=== PATIENT | female | born 1990 | race Caucasian/White ===

== ENCOUNTER 2020-04-08 11:39 | Outpatient (CLI) | payer BC, MEDICAID ==
[~2020-04-08] VITALS: Ht 160 cm; Wt 55.0 kg
[2020-04-08 11:49] VITALS: BP 100/59
[2020-04-08] MEDS ORDERED: PREN1TAB62 PO (11:59)
[2020-04-08 12:11] LABS: MICROSCOPIC INDICATED
== END 2020-04-08 13:09 | disposition home or self-care (01) ==
LOC: LDOP 11:39
PROVIDERS: ATTEND Obstetrics & Gynecology
DX: O26.892 Other specified pregnancy related conditions, second trimester (principal); R25.2 Cramp and spasm; Z3A.23 23 weeks gestation of pregnancy
CPT/HCPCS: 81001; 87086; 99201; G0463

== ENCOUNTER 2020-08-01 12:28 | Inpatient (IN) | payer BC ==
[~2020-08-01] VITALS: Ht 160 cm; Wt 65.9 kg
[~2020-08-01 12:28] MED LIST: PREN1TAB62 PO
[2020-08-06] MEDS: LACTATED RINGERS 1,000 ML IV SCH (08:00)
[2020-08-06] MEDS ORDERED: D5%-LACTATED RINGERS 1,000 ML IV SCH (21:00)
[2020-08-06] MEDS ORDERED: TERBUTALINE 1 MG/ML, 1ML IVPush PRN (21:00)
[2020-08-06] MEDS ORDERED: OXYTOCIN 30U/ 0.9% NaCL 500ML 500 ML IV ONE (21:00)
[2020-08-06] MEDS ORDERED: FENTANYL PF 100 MCG/2ML IV PRN (21:00)
[2020-08-06] MEDS ORDERED: SODIUM CITRATE/CITRIC ACID 30 ML UDC PO PRN (21:00)
[2020-08-06] MEDS ORDERED: ALUMINUM/MAG/SIMETHICONE 30 ML UDC PO PRN (21:00)
[2020-08-06] MEDS ORDERED: METOCLOPRAMIDE 5 MG/ML, 2ML IVPush PRN (21:00)
[2020-08-06] MEDS ORDERED: ONDANSETRON 2MG/ML, 2ML IVPush PRN (21:00)
[2020-08-06] MEDS ORDERED: OXYTOCIN 30U/ 0.9% NaCL 500ML 500 ML IV PRN (21:00)
[2020-08-06] MEDS ORDERED: TERBUTALINE 1 MG/ML, 1ML SQ PRN (21:00)
[2020-08-06] MEDS ORDERED: MISOPROSTOL 25 MCG TABLET VG PRN (21:00)
[2020-08-06] MEDS ORDERED: LIDOCAINE 1%, 20ML ONE (21:18)
[2020-08-06] MEDS ORDERED: MISOPROSTOL 25 MCG TABLET ONE (21:18)
[2020-08-06] MEDS ORDERED: NEWBORN KIT ONE (21:18)
[2020-08-06] MEDS ORDERED: OXYTOCIN 30U/ 0.9% NaCL 500ML 500 ML ONE (21:19)
[2020-08-06] MEDS ORDERED: MISOPROSTOL 200 MCG TABLET ONE (21:19)
[2020-08-06 21:29] LABS: BASOPHILS % (AUTO) 0 % (0-1); EOSINOPHILS % (AUTO) 2 % (1-7); LYMPHOCYTES % (AUTO) 19 % (22-44); MD NO; MEAN CORPUSCULAR HEMOGLOBIN 33.7 pg (27.0-34.8); MEAN CORPUSCULAR HGB CONC 34.3 g/dL (32.4-35.8); MEAN PLATELET VOLUME 8.9 fL (7.4-10.4); MONOCYTES % (AUTO) 7 % (2-9); NEUTROPHILS % (AUTO) 72 % (42-75); PLATELET COUNT 216 x10^3/uL (130-400); RED BLOOD COUNT 2.78 x10^6/uL (3.82-5.3)
[2020-08-06 21:34] VITALS: BP 120/72
[2020-08-07] MEDS ORDERED: FENTANYL PF 100 MCG/2ML ONE ×2 (08:18→09:16)
[2020-08-07] MEDS: FENTANYL PF 100 MCG/2ML IVPush PRN ×2 (08:28→09:26)
[2020-08-07] MEDS ORDERED: BUPIVACAINE 0.25% ONE ×2 (09:14→15:04)
[2020-08-07] MEDS ORDERED: FENTANYL/BUPIV./NS/PF 250 ML EPIDCONT ONE (09:14)
[2020-08-07] MEDS: LACTATED RINGERS 1,000 ML IV SCH (09:45)
[2020-08-07] MEDS ORDERED: LACTATED RINGERS 1,000 ML IVBOLUS PRN (10:30)
[2020-08-07] MEDS ORDERED: LACTATED RINGERS 1,000 ML IV SCH (10:30)
[2020-08-07] MEDS ORDERED: FENTANYL/BUPIV./NS/PF 250 ML EPIDCONT SCH (10:30)
[2020-08-07] MEDS ORDERED: EPHEDRINE 50 MG/ML, 1ML IVPush PRN (10:30)
[2020-08-07] MEDS ORDERED: ACETAMINOPHEN 500 MG TABLET ONE ×2 (14:29→18:13)
[2020-08-07] MEDS ORDERED: CLINDAMYCIN PMX 900MG/50ML 50 ML ONE (14:30)
[2020-08-07] MEDS ORDERED: ACETAMINOPHEN 500 MG TABLET PO ONE ×2 (14:30→18:00)
[2020-08-07] MEDS ORDERED: GENTAMICIN PER PHARMACY MC PRN (14:30)
[2020-08-07] MEDS: CLINDAMYCIN PMX 900MG/50ML 50 ML IV SCH ×2 (14:34→22:49)
[2020-08-07] MEDS: GENTAMICIN 120 MG in SODIUM CHLORIDE 0.9% 50 ML IV SCH ×2 (15:11→23:29)
[2020-08-07] MEDS ORDERED: PHARMACOKINETIC MONITORING MC PRN ×2 (15:30→17:00)
[2020-08-07] MEDS ORDERED: VANCOMYCIN PER PHARMACY MC PRN (16:30)
[2020-08-07] MEDS: VANCOMYCIN 1,300 MG in SODIUM CHLORIDE 0.9% 250 ML IV SCH (17:07)
[2020-08-07] MEDS ORDERED: OXYTOCIN 30U/ 0.9% NaCL 500ML 500 ML IV SCH (20:00)
[2020-08-07] MEDS ORDERED: ONDANSETRON 2MG/ML, 2ML IV PRN (20:00)
[2020-08-07] MEDS: OXYTOCIN 30U/ 0.9% NaCL 500ML 500 ML IV SCH ×3 (20:00→22:52)
[2020-08-07] MEDS ORDERED: MISOPROSTOL 200 MCG TABLET PR PRN (20:00)
[2020-08-07] MEDS ORDERED: OXYcodone IR 5MG TABLET PO PRN ×2 (20:00)
[2020-08-07] MEDS ORDERED: SIMETHICONE 80 MG CHEW TAB PO PRN (20:00)
[2020-08-07] MEDS ORDERED: ACETAMINOPHEN 325 MG TABLET PO PRN (20:00)
[2020-08-07] MEDS ORDERED: OXYTOCIN 30U/ 0.9% NaCL 500ML 500 ML ONE (20:04)
[2020-08-07] MEDS ORDERED: ACETAMINOPHEN 325 MG TABLET ONE (21:06)
[2020-08-07] MEDS ORDERED: IBUPROFEN 600 MG TABLET ONE (21:07)
[2020-08-07] MEDS: IBUPROFEN 600 MG TABLET PO PRN (21:09)
[2020-08-07 21:45] VITALS: BP 117/75
[2020-08-08] MEDS: OXYTOCIN 30U/ 0.9% NaCL 500ML 500 ML IV SCH ×2 (00:18→01:44)
[2020-08-08 01:45] VITALS: BP 100/64
[2020-08-08 03:07] LABS: BASOPHILS % (AUTO) 0 % (0-1); EOSINOPHILS % (AUTO) 0 % (1-7); LYMPHOCYTES % (AUTO) 6 % (22-44); MEAN CORPUSCULAR HEMOGLOBIN 33.5 pg (27.0-34.8); MEAN CORPUSCULAR HGB CONC 33.9 g/dL (32.4-35.8); MEAN PLATELET VOLUME 8.6 fL (7.4-10.4); MONOCYTES % (AUTO) 7 % (2-9); NEUTROPHILS % (AUTO) 87 % (42-75); PLATELET COUNT 196 x10^3/uL (130-400); RED BLOOD COUNT 2.53 x10^6/uL (3.82-5.3); RED CELL DISTRIBUTION WIDTH 15.3 % (9.6-15.2)
[2020-08-08 03:08] LABS: MD SCAN
[2020-08-08 03:15] LABS: CREATININE 1.37 mg/dL (0.55-1.02)
[2020-08-08] MEDS: VANCOMYCIN 1,300 MG in SODIUM CHLORIDE 0.9% 250 ML IV SCH ×2 (04:54→17:50)
[2020-08-08 05:00] VITALS: BP 103/68
[2020-08-08] MEDS: CLINDAMYCIN PMX 900MG/50ML 50 ML IV SCH (07:07)
[2020-08-08 07:30] VITALS: BP 100/66
[2020-08-08] MEDS: GENTAMICIN 120 MG in SODIUM CHLORIDE 0.9% 50 ML IV SCH (07:53)
[2020-08-08] MEDS: DOCUSATE 100 MG CAPSULE PO PRN (07:53)
[2020-08-08] MEDS: IBUPROFEN 600 MG TABLET PO PRN ×2 (07:53→15:27)
[2020-08-08] MEDS: PRENATAL VIT/IRON/FA 1 EACH TABLET PO SCH (07:53)
[2020-08-08 13:00] VITALS: BP 98/62
[2020-08-08] MEDS ORDERED: CLINDAMYCIN PMX 900MG/50ML 50 ML IV SCH (14:30)
[2020-08-08] MEDS ORDERED: GENTAMICIN 120 MG in SODIUM CHLORIDE 0.9% 50 ML IV SCH ×2 (15:00→20:00)
[2020-08-08 17:00] VITALS: BP 99/65
[2020-08-08] MEDS: FERROUS SULFATE 325 MG TABLET PO SCH (17:49)
[2020-08-08 20:00] VITALS: BP 94/57
[2020-08-09 07:55] VITALS: BP 99/64
[2020-08-09] MEDS ORDERED: DOCU-131 PO (11:07)
[2020-08-09] MEDS ORDERED: IBUP-1222 PO (11:07)
[2020-08-09] MEDS: PRENATAL VIT/IRON/FA 1 EACH TABLET PO SCH (11:20)
[2020-08-09] MEDS: IBUPROFEN 600 MG TABLET PO PRN (11:20)
[2020-08-09] MEDS: FERROUS SULFATE 325 MG TABLET PO SCH (11:21)
[2020-08-09] MEDS: DOCUSATE 100 MG CAPSULE PO PRN (11:21)
== END 2020-08-09 13:40 | disposition home or self-care (01) | DRG 806 ==
LOC: LDIP 08-06 20:16 → 2NW 08-07 21:40
PROVIDERS: ADMIT Obstetrics & Gynecology; ATTEND Obstetrics & Gynecology
PROC: 10E0XZZ Delivery of Products of Conception, External Approach (ICD-10-PCS; principal; 2020-08-07)
PROC: 10H07YZ Insertion of Other Device into Products of Conception, Via Natural or Artificial Opening (ICD-10-PCS; 2020-08-07)
PROC: 3E0P7VZ Introduction of Hormone into Female Reproductive, Via Natural or Artificial Opening (ICD-10-PCS; 2020-08-07)
PROC: 3E033VJ Introduction of Other Hormone into Peripheral Vein, Percutaneous Approach (ICD-10-PCS; 2020-08-07)
PROC: 3E0D7GC Introduction of Other Therapeutic Substance into Mouth and Pharynx, Via Natural or Artificial Opening (ICD-10-PCS; 2020-08-07)
PROC: 0W8NXZZ Division of Female Perineum, External Approach (ICD-10-PCS; 2020-08-07)
PROC: 0UQGXZZ Repair Vagina, External Approach (ICD-10-PCS; 2020-08-07)
PROC: 3E0R3BZ Introduction of Anesthetic Agent into Spinal Canal, Percutaneous Approach (ICD-10-PCS; 2020-08-07)
PROC: 00HU33Z Insertion of Infusion Device into Spinal Canal, Percutaneous Approach (ICD-10-PCS; 2020-08-07)
DX: O69.81X0 Labor and delivery complicated by cord around neck, without compression, not applicable or unspecified (principal); O99.354 Diseases of the nervous system complicating childbirth; Z37.0 Single live birth; O75.2 Pyrexia during labor, not elsewhere classified; O71.4 Obstetric high vaginal laceration alone; J45.909 Unspecified asthma, uncomplicated; O99.52 Diseases of the respiratory system complicating childbirth; Z3A.40 40 weeks gestation of pregnancy; Z20.822 Contact with and (suspected) exposure to COVID-19; O76 Abnormality in fetal heart rate and rhythm complicating labor and delivery; D64.9 Anemia, unspecified; O99.02 Anemia complicating childbirth; G43.909 Migraine, unspecified, not intractable, without status migrainosus; Z80.1 Family history of malignant neoplasm of trachea, bronchus and lung; Z82.3 Family history of stroke; Z88.0 Allergy status to penicillin; Z88.1 Allergy status to other antibiotic agents
CPT/HCPCS: 36415; 82565; 84520; 85025; 86592; 86850; 86900; 87635; G0378; J3010; J3370; J1580; J2590; J7050; J7120

== ENCOUNTER 2020-09-16 15:54 | Inpatient (IN) | payer BC ==
[~2020-09-16] VITALS: Ht 160 cm; Wt 52.0 kg
[~2020-09-16 15:54] MED LIST changes: +DOCU-131 PO; +IBUP-1222 PO
--- NOTE | 2020-09-16 17:05 | NUR ---
preceptor RN: pt here c/o increased vaginal bleeding today with multiple clots pt reports that she is 6 weeks post-, , vaginal delivery. pt reports that she had pre- care prior to delivery and that during delivery she had some internal tearing requiring sutures and then had an episiotomy that is well healing. pt states that her F/U with her OBGYN is scheduled for next week and that when she called her office they told her to come here for eval pt has no urinary c/o. reports that she is having normal BM and that she is currently taking stool softeners pt states that she is having very minimal cramping. no back pain pt is at bedside
--- NOTE | 2020-09-16 17:20 | NUR ---
preceptor RN: Dr. Richardson has been to bedside for eval pt placed on chucks for comfort pt updated on POC
[2020-09-16 17:59] LABS: BASOPHILS % (AUTO) 1 % (0-1); EOSINOPHILS % (AUTO) 7 % (1-7); LYMPHOCYTES % (AUTO) 29 % (22-44); MEAN CORPUSCULAR HEMOGLOBIN 33.2 pg (27.0-34.8); MEAN CORPUSCULAR HGB CONC 33.7 g/dL (32.4-35.8); MEAN PLATELET VOLUME 7.7 fL (7.4-10.4); MONOCYTES % (AUTO) 5 % (2-9); NEUTROPHILS % (AUTO) 58 % (42-75); PLATELET COUNT 312 x10^3/uL (130-400); RED BLOOD COUNT 3.26 x10^6/uL (3.82-5.3); RED CELL DISTRIBUTION WIDTH 14.4 % (9.6-15.2)
[2020-09-16 18:01] LABS: MD NO
[2020-09-16 18:04] LABS: ALBUMIN 3.4 g/dL (3.4-5.0); ANION GAP 6 mmol/L (5-15); CALCIUM 8.3 mg/dL (8.5-10.1); CHLORIDE 106 mmol/L (98-107); CREATININE 0.62 mg/dL (0.55-1.02)
--- NOTE | 2020-09-16 18:30 | NUR ---
preceptor RN: US at bedside to start exam, pt states that she is having increased bleeding. A&O x4. pink warm and dry
--- NOTE | 2020-09-16 19:04 | NUR ---
Pt ambulated to restroom w steady gait. Pt felt light headed while in restroom, taken back to room via wheelchair for saftey and comfort. Continous pulse ox, BP, and cardiac monitors reapplied. VSS. NSR on monitor. Pt reports light headed feeling has resolved.
--- NOTE | 2020-09-16 19:15 | NUR ---
preceptor RN: bedside US has been completed. Dr. Richardson notified report to Eulalio RAMOS
--- NOTE | 2020-09-16 19:17 | NUR ---
REPORT RECIEVED FROM BARBIE RAMOS, ASSUMED CARE
[2020-09-16] MEDS ORDERED: ADENOSINE 6 MG/2 ML ONE (20:08)
--- NOTE | 2020-09-16 20:12 | NUR ---
PT BEDSIDE FOR RECHECK. PT WAS IN SVT. PT SELF CONVERTED WITH VAGEL MANUEVERS. PT STILL TACHY. IV ESTABLISHED. FLUIDS INFUSING.
[2020-09-16] MEDS ORDERED: SODIUM CHLORIDE 0.9% 1,000ML IVBOLUS ONE ×2 (20:30→22:30)
--- NOTE | 2020-09-16 20:33 | NUR ---
PT STATES " I FEEL BETTER"
--- NOTE | 2020-09-16 21:31 | NUR ---
PT BLEEDING - MD NOTIFED OF BEDDING SOAKED IN BLOOD. FEMALE RN TO ASSIST PT IN CLEANING AND MOVE TO [employer] HELPER BED
[2020-09-16 21:34] LABS: FREE T4 (FREE THYROXINE) 0.69 ng/dL (0.76-1.46)
--- NOTE | 2020-09-16 21:40 | NUR ---
Assist RN: Cleaned patient up with soap and water; provided scar care. Transferred patient to [facility]. Upon movement, patient experienced a syncopal episode. Patient lost consciousness for approx 30 seconds. Patient remains hypotensive; receiving fluids; ERP aware.
--- NOTE | 2020-09-16 22:00 | NUR ---
Assist RN: Chaperoned pelvic exam with ERP. Assisted patient to clean up afterward. Primary RN at bedside. Fluids infusing.
--- NOTE | 2020-09-16 22:07 | NUR ---
RECEIVED BS REPORT FROM RICHARD COOL TO ASSUME CARE OF PT. AT THIS TIME. LAB AT BS FOR REPEAT BLOOD DRAW.
--- NOTE | 2020-09-16 22:58 | NUR ---
DR. TIPTON IN TO DISCUSS POC WITH PT. RAISA SENT TO BLOOD BANK.
[2020-09-16] MEDS ORDERED: METHYLERGONOVINE 0.2 MG/ML IM ONE (23:00)
[2020-09-16 23:03] VITALS: BP 84/43
[2020-09-16 23:10] VITALS: BP 98/44
[2020-09-16] MEDS ORDERED: ONDANSETRON 2MG/ML, 2ML ONE (23:10)
[2020-09-16 23:25] VITALS: BP 90/53
--- NOTE | 2020-09-16 23:26 | NUR ---
BLOOD WAS INITIATED AND PT. REMAINS FREE FROM S/S OF REACTION.
--- NOTE | 2020-09-16 23:35 | NUR ---
FIRST ATTEMPT TO CALL REPORT TO FLOOR.
[2020-09-16 23:40] VITALS: BP 88/50
--- NOTE | 2020-09-16 23:40 | NUR ---
REPORT TO RICHARD FINK. FLOOR READY FOR PT. TRANSPORT. ENDORSED TO FLOOR RN NEED FOR 2ND UNIT OF BLOOD WHEN 1ST ONE IS COMPLETED.
[2020-09-17] VITALS (19 sets, daily range): BP systolic 76–104; BP diastolic 46–68
[2020-09-17] MEDS ORDERED: ACETAMINOPHEN 325 MG TABLET PO PRN
[2020-09-17] MEDS ORDERED: POLYETHYLENE GLYCOL 17 GM PACKET PO PRN
[2020-09-17] MEDS ORDERED: BISACODYL 10 MG SUPP PR PRN
[2020-09-17] MEDS ORDERED: ONDANSETRON ODT 4 MG PO PRN
[2020-09-17 00:04] LABS: INTERNATIONAL NORMALIZED RATIO 1.21 (0.93-1.1); PROTHROMBIN TIME 12.9 Seconds (9.6-11.5)
[2020-09-17 04:40] LABS: BASOPHILS % (AUTO) 0 % (0-1); EOSINOPHILS % (AUTO) 0 % (1-7); LYMPHOCYTES % (AUTO) 11 % (22-44); MEAN CORPUSCULAR HEMOGLOBIN 30.6 pg (27.0-34.8); MEAN CORPUSCULAR HGB CONC 33.7 g/dL (32.4-35.8); MEAN PLATELET VOLUME 7.7 fL (7.4-10.4); MONOCYTES % (AUTO) 2 % (2-9); NEUTROPHILS % (AUTO) 87 % (42-75); PLATELET COUNT 200 x10^3/uL (130-400); RED BLOOD COUNT 3.34 x10^6/uL (3.82-5.3); RED CELL DISTRIBUTION WIDTH 19.3 % (9.6-15.2)
[2020-09-17 04:41] LABS: MD NO
[2020-09-17 04:55] LABS: ANION GAP 7 mmol/L (5-15); CALCIUM 7.2 mg/dL (8.5-10.1); CHLORIDE 114 mmol/L (98-107); CREATININE 0.53 mg/dL (0.55-1.02)
[2020-09-17] MEDS: SENNA/DOCUSATE TABLET PO SCH (08:50)
[2020-09-17] MEDS ORDERED: GADOTERATE 5 MMOL/10 ML VIAL ONE (12:39)
[2020-09-18 01:47] VITALS: BP 92/50
[2020-09-18 05:47] LABS: BASOPHILS % (AUTO) 0 % (0-1); EOSINOPHILS % (AUTO) 11 % (1-7); LYMPHOCYTES % (AUTO) 32 % (22-44); MEAN CORPUSCULAR HEMOGLOBIN 30.8 pg (27.0-34.8); MEAN CORPUSCULAR HGB CONC 33.9 g/dL (32.4-35.8); MEAN PLATELET VOLUME 7.6 fL (7.4-10.4); MONOCYTES % (AUTO) 7 % (2-9); NEUTROPHILS % (AUTO) 50 % (42-75); PLATELET COUNT 166 x10^3/uL (130-400); RED BLOOD COUNT 3.29 x10^6/uL (3.82-5.3); RED CELL DISTRIBUTION WIDTH 18.8 % (9.6-15.2)
[2020-09-18 05:48] LABS: MD NO
[2020-09-18 05:55] LABS: ALBUMIN 2.7 g/dL (3.4-5.0); ANION GAP 6 mmol/L (5-15); CALCIUM 7.6 mg/dL (8.5-10.1); CHLORIDE 115 mmol/L (98-107)
[2020-09-18 05:59] LABS: ALANINE AMINOTRANSFERASE 15 U/L (12-78); ALKALINE PHOSPHATASE 48 U/L (45-117); BILIRUBIN,TOTAL 0.3 mg/dL (0.2-1.0); CREATININE 0.57 mg/dL (0.55-1.02); TOTAL PROTEIN 4.9 g/dL (6.4-8.2)
[2020-09-18 07:01] VITALS: BP 93/53
[2020-09-18] MEDS: SENNA/DOCUSATE TABLET PO SCH (07:23)
[2020-09-18 11:55] VITALS: BP 97/61
== END 2020-09-18 14:50 | disposition home or self-care (01) | DRG 776 ==
LOC: MERGE 15:54 → ED 20:37 → EDIP 22:46 → 4EST 09-17 00:02 → DCLOUNGE 09-18 14:45
PROVIDERS: ADMIT Emergency Medicine; ATTEND Internal Medicine
PROC: 30233N1 Transfusion of Nonautologous Red Blood Cells into Peripheral Vein, Percutaneous Approach (ICD-10-PCS; principal; 2020-09-16)
DX: O72.2 Delayed and secondary postpartum hemorrhage (principal); I47.1 Supraventricular tachycardia; D62 Acute posthemorrhagic anemia; O99.13 Other diseases of the blood and blood-forming organs and certain disorders involving the immune mechanism complicating the puerperium; O99.43 Diseases of the circulatory system complicating the puerperium; O90.81 Anemia of the puerperium; D72.828 Other elevated white blood cell count; Z88.0 Allergy status to penicillin; Z88.8 Allergy status to other drugs, medicaments and biological substances
CPT/HCPCS: 36415; 36430; 70553; 76830; 80048; 80053; 82040; 82533; 83735; 84439; 84443; 84481; 85014; 85018; 85025; 85384; 85610; 85730; 86850; 86900; 86923; 93005; 96374; 96375; 99291; G0378; A9575; J2210; J7030; P9016